=== PATIENT | female | born 1940 | race Caucasian/White ===

== ENCOUNTER 2019-06-08 15:07 | Inpatient (IN) | payer OTHER ==
[~2019-06-08] VITALS: Ht 152.4 cm; Wt 70.2 kg
[2019-06-08] MEDS ORDERED: ONDANSETRON HCL 4 MG/2 ML VIAL ONE (16:20)
[2019-06-08] MEDS ORDERED: MORPHINE SULF INJ 2 MG/ML SYRINGE 1ML ONE (16:20)
[2019-06-08] MEDS ORDERED: ONDANSETRON HCL 4 MG/2 ML VIAL IV ONE (16:30)
[2019-06-08] MEDS ORDERED: MORPHINE SULF INJ 2 MG/ML SYRINGE 1ML IV ONE ×2 (16:30→21:00)
[2019-06-08 16:39] LABS: Basophils # (auto) 0 uL; Basophils % (auto) 0.4 % (0.0-2.0); Eosinophils # (auto) 0.1 uL; Eosinophils % (auto) 2.2 % (0.0-7.0); Hematocrit 35.5 % (36.0-46.0); Hemoglobin 12.2 g/dL (12.2-16.2); Lymphocytes # (auto) 1.3 uL; Lymphocytes % (auto) 19.1 % (10.0-50.0); Mean Corpuscular Hemoglobin 30.7 pg (28.0-32.0); Mean Corpuscular Hgb Conc. 34.3 g/dL (32.0-36.0); Mean Corpuscular Volume 89.5 fL (80.0-100.0); Monocytes # (auto) 0.7 uL; Monocytes % (auto) 9.8 % (0.0-12.0); Neutrophils # (auto) 4.6 uL; Neutrophils % (auto) 68.5 % (37.0-80.0); Nucleated Red Blood Cells % 0.1 %; Platelet Count (auto) 197 10^3/uL (140-450); Red Blood Cells 3.96 10^6/uL (4.0-5.20); Red Cell Distribution Width 14.4 % (11.8-14.3); White Blood Cell 6.7 10^3/uL (4.4-10.8)
[2019-06-08 17:24] LABS: Albumin 3.3 g/dL (3.4-5.0); Anion Gap 10 (5-15); BUN/Creatinine Ratio 26.7; Calcium 10.2 mg/dL (8.5-10.1); Carbon Dioxide 21 mmol/L (21-32); Chloride 107 mmol/L (98-107); GFR African American 17 mL/min; GFR Non-African American 14 mL/min; Glucose 113 mg/dL (74-106); Lipase 648 U/L (73-393); Potassium 4.4 mmol/L (3.5-5.1); Sodium 138 mmol/L (136-145)
[2019-06-08 17:38] LABS: Alanine Aminotransferase 24 U/L (13-56); Alkaline Phosphatase 72 U/L (45-117); Aspartate Aminotransferase 27 U/L (15-37); Bilirubin, Total 0.3 mg/dL (0.2-1.0); Total Protein 7.4 g/dL (6.4-8.2)
[2019-06-08 17:46] LABS: Blood Urea Nitrogen 91 mg/dL (7-18)
[2019-06-08] MEDS ORDERED: SODIUM CHLORIDE 0.9% 1,000 ML IV ONE (17:49)
[2019-06-08] MEDS ORDERED: PIPERACILLIN-TAZOB 3.375GM 100 ML IV ONE (18:00)
[2019-06-08 19:22] LABS: Urine Bacteria FEW /hpf (None Seen); Urine Blood 1+ /uL (Negative); Urine Hyaline Cast FEW /lpf (0 - 2); Urine Specific Gravity 1.015 (1.001-1.035); Urine WBC 6 /hpf (0 - 5)
[2019-06-08] MEDS ORDERED: D5W/SOD CHL 0.45% 1,000 ML IV SCH (21:14)
[2019-06-08] MEDS ORDERED: ONDANSETRON HCL 4 MG/2 ML VIAL IV PRN (21:15)
[2019-06-08] MEDS ORDERED: MORPHINE SULF INJ 2 MG/ML SYRINGE 1ML IV PRN (21:15)
[2019-06-08] MEDS ORDERED: DOCUSATE SOD 100 MG CAP PO PRN (22:00)
[2019-06-08] MEDS ORDERED: DOCUSATE SOD 100 MG CAP PO SCH (22:00)
[2019-06-08 23:15] VITALS: BP 112/70
--- NOTE | 2019-06-08 23:15 | NUR ---
M/S ADMIT FROM ER RECEIVED PATIENT VIA GURNEY FROM ER. PATIENT A/O X4, BEDREST. NO S/S OF DISTRESS OR SOB. PATIENT REPORTS ABDOMINAL PAIN AND REQUESTING PAIN MEDICATION. WILL MEDICATE PER MEDICATION ORDERS. UPDATED PATIENT ON POC, VERBALIZED UNDERSTANDING. BED LOCKED IN LOW POSITION, CALL LIGHT WITHIN REACH. WILL CONTINUE TO MONITOR PATIENT Q1HR AND PRN.
--- NOTE | 2019-06-09 | NUR ---
MED REC PATIENT UNABLE TO RECALL ALL MEDICATIONS AND DOSAGES. PATIENT STATED SHE WILL HAVE HER SON, EDGARDO, BRING IN A LIST OF MEDICATIONS AND DOSAGES. WILL CONTINUE TO MONITOR.
[2019-06-09] MEDS: SENNA 8.6 MG TAB PO SCH ×2 (00:18→18:00)
[2019-06-09] MEDS: MORPHINE SULF INJ 2 MG/ML SYRINGE 1ML IV PRN ×2 (00:32→11:30)
[2019-06-09 05:00] VITALS: BP 114/44
[2019-06-09 08:00] VITALS: BP 98/43
[2019-06-09] MEDS ORDERED: INFLUENZA QUAD 2019-2020 0.5ml SYRG IM ONE (10:00)
[2019-06-09] MEDS ORDERED: APIX5TAB PO (10:30)
[2019-06-09] MEDS ORDERED: ALPR0.5T7 PO (10:43)
[2019-06-09] MEDS ORDERED: FAM20T PO (10:43)
[2019-06-09] MEDS ORDERED: LISI-711 PO (10:43)
[2019-06-09] MEDS ORDERED: CARI350T22 PO (10:43)
[2019-06-09] MEDS ORDERED: AML5T PO (10:43)
[2019-06-09] MEDS ORDERED: DIPH50TA9 PO (10:43)
[2019-06-09] MEDS ORDERED: MET50T PO (10:43)
[2019-06-09] MEDS ORDERED: ERGO50003 PO (10:43)
[2019-06-09] MEDS ORDERED: SENN8.6T92 PO (10:43)
[2019-06-09] MEDS ORDERED: MAGNESIUM CITRATE SOLUTION 300 ML BTL PO ONE (11:30)
[2019-06-09] MEDS: SODIUM CHLORIDE 0.9% 1,000 ML IV SCH (12:29)
[2019-06-09 13:00] VITALS: BP 106/32
[2019-06-09 17:25] VITALS: BP 107/38
--- NOTE | 2019-06-09 19:35 | NUR ---
OPENING SHIFT NOTE RECEIVED REPORT FROM DAY SHIFT RN. PATIENT A/O X4, BEDREST. NO S/S OF DISTRESS OR SOB. UPDATED PATIENT ON POC, VERBALIZED UNDERSTANDING. NO S/S OF DISTRESS OR SOB. BED LOCKED IN LOW POSITION, CALL LIGHT WITHIN REACH. WILL CONTINUE TO MONITOR PATIENT Q1HR AND PRN.
[2019-06-09 22:00] VITALS: BP 112/49
[2019-06-09] MEDS: FAMOTIDINE (10MG/ML) 2ML VL IV SCH (22:24)
[2019-06-10] MEDS: SODIUM CHLORIDE 0.9% 1,000 ML IV SCH ×2 (02:11→14:36)
[2019-06-10 05:53] VITALS: BP 103/46
[2019-06-10 07:43] LABS: BUN/Creatinine Ratio 36.4; Calcium 8.7 mg/dL (8.5-10.1); Potassium 4.5 mmol/L (3.5-5.1)
[2019-06-10 09:00] VITALS: BP 129/51
[2019-06-10] MEDS: FAMOTIDINE (10MG/ML) 2ML VL IV SCH (10:08)
[2019-06-10 13:00] VITALS: BP 128/49
[2019-06-10] MEDS ORDERED: MAGNESIUM CITRATE SOLUTION 300 ML BTL PO ONE ×2 (14:00→20:00)
[2019-06-10 17:00] VITALS: BP 127/86
[2019-06-10] MEDS: SENNA 8.6 MG TAB PO SCH (18:06)
[2019-06-10 20:00] VITALS: BP 131/48
[2019-06-10] MEDS: DOCUSATE SOD 100 MG CAP PO SCH (21:35)
[2019-06-10 22:00] VITALS: BP 131/48
--- NOTE | 2019-06-11 00:26 | NUR ---
Stool sample bulleted to lab
--- NOTE | 2019-06-11 00:27 | NUR ---
returned call Dr. Rosenberg returned call, updated on patient status, patient had 3 dark tarry stools and reason for call, orders received to send stool sample for stool occult blood. Continue care.
[2019-06-11] MEDS: MORPHINE SULF INJ 2 MG/ML SYRINGE 1ML IV PRN (05:30)
[2019-06-11] MEDS: SODIUM CHLORIDE 0.9% 1,000 ML IV SCH (05:35)
[2019-06-11 06:21] VITALS: BP 139/56
[2019-06-11 06:30] LABS: Basophils # (auto) 0 uL; Basophils % (auto) 0.4 % (0.0-2.0); Eosinophils # (auto) 0.4 uL; Eosinophils % (auto) 8.4 % (0.0-7.0); Hematocrit 29.8 % (36.0-46.0); Hemoglobin 10.1 g/dL (12.2-16.2); Lymphocytes % (auto) 18.9 % (10.0-50.0); Mean Corpuscular Hemoglobin 30.9 pg (28.0-32.0); Mean Corpuscular Volume 90.8 fL (80.0-100.0); Monocytes # (auto) 0.6 uL; Neutrophils # (auto) 3.1 uL; Neutrophils % (auto) 61.3 % (37.0-80.0); Nucleated Red Blood Cells % 0.1 %; Platelet Count (auto) 160 10^3/uL (140-450); Red Blood Cells 3.28 10^6/uL (4.0-5.20); Red Cell Distribution Width 14.4 % (11.8-14.3); White Blood Cell 5.1 10^3/uL (4.4-10.8)
[2019-06-11 06:52] LABS: BUN/Creatinine Ratio 32.4; Calcium 8.9 mg/dL (8.5-10.1); Potassium 4.2 mmol/L (3.5-5.1)
[2019-06-11 09:00] VITALS: BP 137/44
[2019-06-11] MEDS: DOCUSATE SOD 100 MG CAP PO SCH (10:00)
[2019-06-11] MEDS ORDERED: FAMOTIDINE 20 MG TAB PO SCH (10:00)
--- NOTE | 2019-06-11 11:41 | NUR ---
PT SEEN BY DR. KYLE PER DR. KYLE PT CAN GO HOME.
[2019-06-11 13:00] VITALS: BP 153/55
--- NOTE | 2019-06-11 13:05 | NUR ---
Beverly catheter dc'd Order to discontinue beverly catheter. Beverly dc'd with clean technique following deflation of balloon. Patient tolerated well with no complaints of pain. Continue care.
--- NOTE | 2019-06-11 13:07 | NUR ---
PAGED DR. KYLE FAMILY AT BEDSIDE SAYING PT NEEDS HOME HEALTH AND PHYSICAL THERAPY, WAITING FOR CALL BACK.
--- NOTE | 2019-06-11 14:07 | NUR ---
DR. KYLE CALLED HE ORDERED HOME HEALTH, PHYSICAL THERAPY AND WALKER.
--- NOTE | 2019-06-11 14:15 | NUR ---
PT URINATED AFTER NICKERSON WAS DISCONTINUED.
--- NOTE | 2019-06-11 14:20 | NUR ---
[employer] [employer] MADE AWARE OF THE CONSULT FOR HOME HEALTH, PHYSICAL THERAPY AND WALKER.
[2019-06-11 14:42] VITALS: BP 153/55
[2019-06-11] MEDS ORDERED: INFLUENZA QUAD 2019-2020 0.5ml SYRG IM ONE (16:15)
--- NOTE | 2019-06-11 16:49 | NUR ---
[id number] planning per SS consult, patient has orders for home PT, and home health services and a walker. Referral sent to [facility], [facility] for the walker. Acceptance is pending, will follow up on equipment on 06.12.19. Nurse advised if patient is medically stable, she is okay to discharge.
--- NOTE | 2019-06-11 16:50 | NUR ---
spoke with Shea, she said pt is okay to go home, walker will be delivered in the pt's house and home health order was sent to [facility].
[2019-06-11 17:00] VITALS: BP 170/67
--- NOTE | 2019-06-11 17:25 | NUR ---
PT AND FAMILY MADE AWARE WALKER WILL BE DELIVERED IN THE PT'S HOUSE.
--- NOTE | 2019-06-11 17:30 | NUR ---
Discharge instructions given as ordered. Encourage to follow up with [facility] ON JUNE 18 AT 9:20AM as instructed. All questions and concerns addressed. Patient verbalized understanding. Medication reconciliation form completed and copy given to patient. needed vaccines given. IV removed with catheter intact, pressure dressing applied. Patient taken to vehicle via wheelchair with all personal belongings, accompanied by staff and family member. No distress noted at time of departure.
--- NOTE | 2019-06-12 16:55 | NUR ---
Discharge planning. Referral sent to [facility] for the walker. Placed a follow up call, spoke with [facility] and was advised that they will deliver the walker to the patient's home at approximately 7pm today 06.12.19. Referral for HH was sent to [facility]. Placed a follow up call, spoke with Rosana was then transferred to [facility] and was advised that the patient's start of care is for 06.13.19.
== END 2019-06-11 17:30 | disposition home health service (06) | DRG 388 ==
LOC: EDBD 15:07 → ER 15:07 → OVERFLOW 15:08 → WEST WING 23:02
PROVIDERS: ADMIT Hospitalist; ATTEND Internal Medicine
DX: K56.41 Fecal impaction (principal); K85.90 Acute pancreatitis without necrosis or infection, unspecified; N17.9 Acute kidney failure, unspecified; I12.9 Hypertensive chronic kidney disease with stage 1 through stage 4 chronic kidney disease, or unspecified chronic kidney disease; N18.2 Chronic kidney disease, stage 2 (mild); E86.0 Dehydration; R79.89 Other specified abnormal findings of blood chemistry; Z88.8 Allergy status to other drugs, medicaments and biological substances; D64.9 Anemia, unspecified; E11.22 Type 2 diabetes mellitus with diabetic chronic kidney disease; I48.91 Unspecified atrial fibrillation; K57.90 Diverticulosis of intestine, part unspecified, without perforation or abscess without bleeding; N20.0 Calculus of kidney; Z79.01 Long term (current) use of anticoagulants; Z80.1 Family history of malignant neoplasm of trachea, bronchus and lung; Z86.73 Personal history of transient ischemic attack (TIA), and cerebral infarction without residual deficits
CPT/HCPCS: 36415; 51702; 71045; 74176; 76775; 80048; 80053; 81001; 82270; 83605; 83690; 85025; 87040; 93005; 96365; 96375; 97110; 97163; 97530; G0378; J2405; J2543; J3490